=== PATIENT | female | born 1995 | race Two or more races ===

== ENCOUNTER 2019-01-21 09:55 | Emergency (ER) | payer OTHER ==
[2019-01-21 10:35] LABS: BASOPHILS % (AUTO) 0.5 %; EOSINOPHILS # (AUTO) 0.1 10^3/uL (0.0-0.7); EOSINOPHILS % (AUTO) 1.5 %; HGB - HEMOGLOBIN 13.7 g/dL (12.0-16.0); LYMPHOCYTES # (AUTO) 3.1 10^3/uL (1.5-3.5); LYMPHOCYTES % (AUTO) 40.3 %; MEAN CORPUSCULAR HEMOGLOBIN 29.2 pg (27.0-31.0); MEAN CORPUSCULAR HGB CONC 33.5 g/dL (32.0-36.0); MEAN CORPUSCULAR VOLUME 87.2 fL (81.0-99.0); MEAN PLATELET VOLUME 8.4 fL (7.9-10.8); MONOCYTES # (AUTO) 0.5 10^3/uL (0.0-1.0); NEUTROPHILS % (AUTO) 51.7 %; PLT - PLATELET COUNT 351 10^3/uL (130-450); RED BLOOD COUNT 4.71 10^6/uL (4.20-5.40); RED CELL DISTRIBUTION WIDTH 12.5 % (12.0-15.0); WHITE BLOOD COUNT 7.7 x10^3/uL (4.8-10.8)
[2019-01-21 10:40] LABS: BILIRUBIN,URINE NEGATIVE (NEGATIVE); CLARITY,URINE CLEAR (CLEAR); GLUCOSE, URINE (UA) NEGATIVE (NEGATIVE); KETONES,URINE (UA) NEGATIVE (NEGATIVE); LEUKOCYTE ESTERASE, URINE NEGATIVE (NEGATIVE); NITRITE,URINE NEGATIVE (NEGATIVE); OCCULT BLOOD,URINE TRACE-LYSE (NEGATIVE); PROTEIN,URINE NEGATIVE (NEGATIVE); UROBILINOGEN,URINE 0.2 (NORMAL) E.U./dL (NORMAL)
[2019-01-21 10:41] LABS: HCG UR QUAL NEGATIVE
[2019-01-21] MEDS ORDERED: SODIUM CHLORIDE 0.9% 1,000 ML IV ONE (10:46)
[2019-01-21 10:47] LABS: ALBUMIN 4.4 g/dL (3.2-5.5); ALBUMIN/GLOBULIN RATIO 1.2 (1.0-2.2); BILIRUBIN,TOTAL 0.3 mg/dL (0.2-1.0); CALCIUM 9.2 mg/dL (8.5-10.3); CREATININE 0.4 mg/dL (0.4-1.0)
--- NOTE | 2019-01-21 10:51 | ED Physician Documentation ---
PD HPI FEMALE - Stated complaint Stated Complaint: PELVIC PAIN - Chief complaint Chief Complaint: Abd Pain - History obtained from History obtained from: Patient, Family - History of Present Illness Timing - onset: Enter time (1529), Yesterday Timing - duration: Days (1) Timing - details: Abrupt onset, Still present Pain level max: 8 Pain level max: 4 Associated symptoms: Abdominal pain, Pelvic pain. No: Vaginal pain, Vaginal bleeding, Vaginal discharge Contributing factors: IUD Similar symptoms before: Diagnosis (pelvic pain) Recently seen: Not recently seen - Additional information Additional information: 23-year-old female with an IUD in place has developed acute right lower quadrant pain that is similar to episodes she has had previously that happen sporadically and usually last 2 days. She has been into see her doctor about this pain and her IUD strings were checked they were in the normal place she did not have any discharge and she has had resolution of her symptoms. She has recurrent symptoms with a predictable pattern and she is here today because the pain has intensified and lasted. Review of Systems Constitutional: denies: Fever, Chills, Myalgias, Fatigue Eyes: denies: Decreased vision Ears: denies: Ear pain Nose: denies: Congestion Throat: denies: Sore throat Cardiac: denies: Chest pain / pressure, Palpitations Respiratory: denies: Dyspnea, Cough GI: reports: Abdominal Pain, Nausea. denies: Vomiting, Constipation, Diarrhea : denies: Dysuria, Frequency, Discharge, Vaginal bleeding Skin: denies: Rash Musculoskeletal: denies: Neck pain, Back pain, Extremity pain Neurologic: denies: Generalized weakness, Focal weakness, Numbness PD PAST MEDICAL HISTORY - Past Medical History Past Medical History: No - Past Surgical History Past Surgical History: No - Allergies Allergies/Adverse Reactions: Allergies Allergy/AdvReac Type Severity Reaction Status Date / Time Sulfa (Sulfonamide Allergy Rash Verified 01/21/19 10:13 Antibiotics) - Social History Does the pt smoke?: No Smoking Status: Never smoker Does the pt drink ETOH?: Yes Does the pt have substance abuse?: No PD ED PE NORMAL - Vitals Vital signs reviewed: Yes (normal ) - General General: Alert and oriented X 3, No acute distress, Well developed/nourished - HEENT HEENT: Atraumatic, PERRL, EOMI - Neck Neck: Supple, no meningeal sign, No bony TTP - Cardiac Cardiac: RRR, No murmur - Respiratory Respiratory: No respiratory distress, Clear bilaterally - Abdomen Abdomen: Soft, Other (RLQ tenderness without guarding or referred tenderness. ) - Back Back: No CVA TTP, No spinal TTP - Derm Derm: Normal color, Warm and dry, No rash - Extremities Extremities: No deformity, No edema - Neuro Neuro: Alert and oriented X 3, complaint manager 2-12 intact, No motor deficit, No sensory deficit, Normal speech Eye Opening: Spontaneous Motor: Obeys Commands Verbal: Oriented GCS Score: 15 - Psych Psych: Normal mood, Normal affect Results - Vitals Vitals: Vital Signs - 24 hr 01/21/19 01/21/19 10:07 13:37 Temperature 36.8 C Heart Rate 82 84 Respiratory 14 18 Rate Blood Pressure 115/71 107/70 O2 Saturation 99 100 Oxygen O2 Source Room air - Labs Labs: Laboratory Tests 01/21/19 01/21/19 01/21/19 10:25 10:25 10:25 WBC 7.7 RBC 4.71 Hgb 13.7 Hct 41.0 MCV 87.2 MCH 29.2 MCHC 33.5 RDW 12.5 Plt Count 351 MPV 8.4 Neut # (Auto) 4.0 Lymph # (Auto) 3.1 Titus # (Auto) 0.5 Eos # (Auto) 0.1 Baso # (Auto) 0.0 Absolute Nucleated RBC 0.01 Nucleated RBC % 0.1 Sodium 140 Potassium 3.9 Chloride 106 Carbon Dioxide 26 Anion Gap 8.0 BUN 12 Creatinine 0.4 Estimated GFR (MDRD) 198 Glucose 92 Calcium 9.2 Total Bilirubin 0.3 AST 21 ALT 18 Alkaline Phosphatase 93 Total Protein 8.0 Albumin 4.4 Globulin 3.6 Albumin/Globulin Ratio 1.2 Lipase 30 TSH Urine Color YELLOW Urine Clarity CLEAR Urine pH 7.0 Ur Specific [place] 1.020 Urine Protein NEGATIVE Urine Glucose (UA) NEGATIVE Urine Ketones NEGATIVE Urine Occult Blood TRACE-LYSE Urine Nitrite NEGATIVE Urine Bilirubin NEGATIVE Urine Urobilinogen 0.2 (NORMAL) Ur Leukocyte Esterase NEGATIVE Ur Microscopic Review NOT INDICATED Urine Culture Comments NOT INDICATED Urine HCG, Qual NEGATIVE 01/21/19 10:25 WBC RBC Hgb Hct MCV MCH MCHC RDW Plt Count MPV Neut # (Auto) Lymph # (Auto) Titus # (Auto) Eos # (Auto) Baso # (Auto) Absolute Nucleated RBC Nucleated RBC % Sodium Potassium Chloride Carbon Dioxide Anion Gap BUN Creatinine Estimated GFR (MDRD) Glucose Calcium Total Bilirubin AST ALT Alkaline Phosphatase Total Protein Albumin Globulin Albumin/Globulin Ratio Lipase TSH 3.41 Urine Color Urine Clarity Urine pH Ur Specific [place] Urine Protein Urine Glucose (UA) Urine Ketones Urine Occult Blood Urine Nitrite Urine Bilirubin Urine Urobilinogen Ur Leukocyte Esterase Ur Microscopic Review Urine Culture Comments Urine HCG, Qual - Rads (name of study) pelvic u/s Radiology: Prelim report reviewed (Impression: 1. Normal pelvic ultrasound. 2 No endometrial mass or polyp. IUD noted in expected position.3 Arterial and venous blood flow are present to the ovaries bilaterally.), EMP read indepedently, See rad report PD MEDICAL DECISION MAKING - ED course Complexity details: reviewed results, re-evaluated patient, considered differential, d/w patient, d/w family ED course: 23-year-old female with a 2-year history of dyspareunia with a day and a half long episode of pain following intercourse. She states that she has episodes of similar pain at times not related to intercourse with a similar timeframe. She has entirely negative diagnostics today and her pain has waned. I have asked patient to follow-up with [facility]NALYS[facility]ALUATOR specifically about the dyspareunia. Departure - Departure Disposition: 01 Home, Self Care Clinical Impression: Pelvic pain, Dyspareunia in female Condition: Stable Instructions: ED Pelvic Pain [facility] Follow-Up: MYRON JOYNER MD [Primary Care Provider] - [facility] [Provider Group]
[2019-01-21 13:38] VITALS: BP 107/70
--- NOTE | 2019-01-21 13:43 | Ultrasound Report ---
Reason: RLQ pain recurrent Procedure Date: 01/21/2019 Accession Number: [id number] / [id number] Procedure: US - Pelvic w/Transvag+Doppler Ltd CPT Code: FULL RESULT: EXAM: PELVIC ULTRASOUND WITH DOPPLERS CLINICAL HISTORY: RLQ pain recurrent. COMPARISON: None. TECHNIQUE: Realtime transabdominal imaging performed to identify the uterus and adnexa and as an overview of other pelvic structures, followed by transvaginal imaging for better assessment of the endometrium and adnexa, with static image documentation. Color flow imaging and Doppler spectral analysis was performed to evaluate blood flow to the ovaries given pelvic pain and clinical concern for ovarian torsion. FINDINGS: Uterus: 7.5 x 2.7 x 4.8 cm, volume 50.8 cc. Anteverted position. Normal overall size and echotexture. Masses: None. Endometrium: 4.2 mm. No endometrial mass or polyp.IUD is in normal position. Cervix: Unremarkable. Right Ovary: 3.3 x 2.5 x 3.1 cm, volume 13.4 cc. Normal echotexture. Arterial and venous blood flow are present. PSV 9.0 cm/sec. RI 0.55. Adnexa are unremarkable. Multiple normal follicles noted. Left Ovary: 3 x 2.5 x 2.4 cm, volume 9.4 cc. Normal echotexture. Arterial and venous blood flow are present. PSV 10.0 cm/sec. RI 0.49. Adnexa are unremarkable. Multiple normal follicles noted. Free Fluid: None. Other: None. IMPRESSION: 1. Normal pelvic ultrasound. 2. No endometrial mass or polyp. IUD noted in expected position. 3. Arterial and venous blood flow are present to the ovaries bilaterally. [facility]
== END 2019-01-21 14:16 | disposition home or self-care (01) ==
LOC: ED 09:55
DX: R10.2 Pelvic and perineal pain (principal); N94.10 Unspecified dyspareunia; Z97.5 Presence of (intrauterine) contraceptive device
CPT/HCPCS: 36415; 76830; 76856; 80053; 81001; 81003; 81025; 83690; 84443; 85025; 87086; 93976; 96360; 99283